=== PATIENT | female | born 1995 | race Caucasian/White ===

== ENCOUNTER 2020-02-12 18:10 | Emergency (ER) | payer BC ==
[~2020-02-12] VITALS: Ht 162.6 cm; Wt 70.0 kg
[2020-02-12] MEDS ORDERED: CYCLOBENZAPRINE 10MG TABLET PO ONE (21:00)
[2020-02-12] MEDS: KETOROLAC 30MG/ML VIAL IM ONE ×2 (21:33→21:49)
[2020-02-12] MEDS ORDERED: ACETAMINOPHEN WITH CODEINE 300/30MG TABLET PO ONE (21:45)
[2020-02-12 22:11] VITALS: BP 115/78
== END 2020-02-12 22:12 | disposition home or self-care (01) ==
LOC: ER 18:10
DX: S39.012A Strain of muscle, fascia and tendon of lower back, initial encounter (principal); W18.39XA Other fall on same level, initial encounter; Y93.89 Activity, other specified; Y92.89 Other specified places as the place of occurrence of the external cause; Y99.8 Other external cause status; J45.909 Unspecified asthma, uncomplicated; Z88.6 Allergy status to analgesic agent
CPT/HCPCS: 99283; J1885